=== PATIENT | male | born 1995 | race Two or more races ===

== ENCOUNTER 2017-04-12 16:08 | Emergency (ER) | payer BC, OTHER ==
[2017-04-12 16:18] VITALS: BP 137/66
--- NOTE | 2017-04-12 16:47 | UC ---
Respiratory Complaint HPI - HPI Summary HPI Summary: PATIENT PRESENTS TO WITH CC OF COUGH X 1.5 WEEKS WITH SPUTUM PRODUCTION. SYMPTOMS ARE WORSE AT NIGHT AND BETTER DURING THE DAY. DENIES FEVER, SWEATS OR CHILLS. DENIES BODY ACHES, MARIN, N/V OR RESPIRATORY DISTRESS. HE WAS DX WITH ASTHMA MANY YEARS AGO AND STATES HE HAS ONLY USED AN ALBUTEROL INHALER TWICE IN HIS LIFE. HE IS VISITING [place] NEXT WEEK AND IS CONCERNED OVER SOMETHING MORE SERIOUS THAN A COLD/COUGH. HE HAS NOT TAKEN ANYTHING FOR RELIEF. HE ENDORSES EAR POPPING AND SINUS DISCOMFORT. DENIES THROAT PAIN OR CHEST PAIN. HE IS NOTING SOME DIFFICULTY BREATHING, BUT ONLY SURROUNDING THE TIMES OF HIS COUGH. HE DENIES SICK CONTACTS. NO KNOWN ALLERGIES. PATIENT IS OTHERWISE HEALTHY. PATIENT IS A NON-SMOKER. - History of Current Complaint Chief Complaint: UCRespiratory Stated Complaint: COUGH, CONGESTION Time Seen by Provider: 04/12/17 16:31 Hx Obtained From: Patient Onset/Duration: Gradual Onset Timing: Constant Severity Initially: Moderate Severity Currently: Moderate Pain Intensity: 2 Character: Cough: Productive Aggravating Factors: Deep Breaths, Recumbent Position Alleviating Factors: Upright Position Associated Signs And Symptoms: Positive: Dyspnea, URI, Nasal Congestion, Sinus Discomfort - Risk Factors Pulmonary Embolism Risk Factors: Negative Cardiac Risk Factors: Negative Pseudomonas Risk Factors: Negative Tuberculosis Risk Factors: Negative - Allergies/Home Medications Allergies/Adverse Reactions: Allergies Allergy/AdvReac Type Severity Reaction Status Date / Time No Known Allergies Allergy Verified 05/27/16 22:08 Home Medications: Home Medications ZyrTEC 10 MG TAB* 10 mg PO DAILY 04/12/17 [History Confirmed 04/12/17] PMH/Surg Hx/FS Hx/Imm Hx Previously Healthy: Yes Endocrine History Of: Denies: Diabetes, Thyroid Disease Cardiovascular History Of: Denies: Cardiac Disorders, Hypertension, Pacemaker/ICD Respiratory History Of: Denies: COPD, Asthma GI/ History Of: Denies: Ulcer - Surgical History Surgical History: Yes Surgery Procedure, Year, and Place: WISDOM TEETH EXTRACTION - Family History Known Family History: Positive: Unknown - Social History Occupation: Unemployed, Student Lives: With Family Alcohol Use: None Substance Use Type: None Smoking Status (MU): Never Smoked Tobacco Have You Smoked in the Last Year: No - Immunization History Vaccination Up to Date: Yes Review of Systems Constitutional: Negative Skin: Negative ENT: Nasal Discharge Respiratory: Shortness Of Breath, Cough Cardiovascular: Negative Genitourinary: Negative Motor: Negative Musculoskeletal: Negative Neurological: Negative All Other Systems Reviewed And Are Negative: Yes Physical Exam Triage Information Reviewed: Yes Appearance: Well-Appearing, No Pain Distress, Well-Nourished Vital Signs: Initial Vital Signs Temp 98.8 F 04/12/17 16:15 Pulse 72 04/12/17 16:15 Resp 18 04/12/17 16:15 BP 137/66 04/12/17 16:15 Pulse Ox 97 04/12/17 16:15 Vital Signs Reviewed: Yes Eye Exam: Normal Eyes: Positive: Conjunctiva Clear ENT: Positive: Pharynx normal, Nasal congestion, Nasal drainage Neck exam: Normal Neck: Positive: Supple Respiratory: Positive: Chest non-tender, No accessory muscle use, Wheezing Cardiovascular Exam: Normal Cardiovascular: Positive: RRR Musculoskeletal Exam: Normal Musculoskeletal: Positive: Strength Intact Psychological: Positive: Normal Response To Family, Age Appropriate Behavior Skin Exam: Normal UC Diagnostic Evaluation - Laboratory O2 Sat by Pulse Oximetry: 97 Respiratory Course/Dx - Course Course Of Treatment: PATIENT PRESENTS WITH 1.5 WEEK HISTORY OF COUGH WITH PRODUCTION, SOB AND WHEEZING. DENIES FEVER, CHILLS OR SWEATS. DENIES RESPIRATORY HISTORY. PATIENT IS OTHERWISE HEALTHY. CXR REVEALS NO ACUTE CARDIOPULMONARY DISEASE. PATIENT IS PRESCRIBED ALBUTEROL INHALER FOR SOB, PREDNISONE FOR SOB AND WHEEZING AND MUCINEX FOR SPUTUM PRODUCTION. ENCOURAGED OTC COUGH MEDICATION IF NEEDED AFTER 4 DAYS OF MUCINEX. - Differential Dx/Diagnosis Differential Diagnosis/HQI/PQRI: Bronchitis, Lower Resp Infection, Sinusitis Provider Diagnoses: UPPER RESPIRATORY ILLNESS Discharge - Discharge Plan Condition: Stable Disposition: HOME Prescriptions: Albuterol HFA INHALER* [Ventolin HFA Inhaler*] 1 puff INH Q4H PRN #1 mdi PRN Reason: Shortness Of Breath guaiFENesin ER TAB [Mucinex*] 600 mg PO BID PRN #8 tab.er PRN Reason: Cough predniSONE TAB* [Deltasone TAB*] 50 mg PO DAILY #5 tab MDD 1 Patient Education Materials: Upper Respiratory Infection (ED) Referrals: Lennox Truong MD [Primary Care Provider] - Additional Instructions: Take 1 tab twice daily of mucinex Prednisone in the morning 50mg daily for 5 days Robitussin over the counter cough medication as needed Albuterol inhaler for shortness of breath Humidifier in the home will help symptoms Hot tea with lemon and honey to help break up mucous If symptoms become worse, come back to UC or go to ED Drink plenty of fluids and rest
--- NOTE | 2017-04-12 17:10 | RAD ---
INDICATION: Wheeze lung bases and cough. COMPARISON: Comparison is made with a prior study from June 21, 2007. TECHNIQUE: Dual-energy PA and lateral views of the chest were obtained. FINDINGS: The heart is within normal limits in size. Mediastinal and hilar contours appear within normal limits. The lungs are clear. No pleural effusion is present. IMPRESSION: NO EVIDENCE FOR ACTIVE CARDIOPULMONARY DISEASE.
[2017-04-12] MEDS ORDERED: guaiFENesin ER TAB 600 MG PO ONE (17:12)
[2017-04-12] MEDS ORDERED: Albuterol HFA INHALER* 8 gm MDI INH ONE (17:12)
[2017-04-12] MEDS ORDERED: GuaiFENesin DM* 5 ML UDC PO ONE (17:51)
[2017-04-12] MEDS ORDERED: guaiFENesin/CODIEN 100MG-10MG* 5 ML UDC PO ONE (17:55)
== END 2017-04-12 17:19 | disposition home or self-care (01) ==
LOC: UCEAST 16:08
DX: J06.9 Acute upper respiratory infection, unspecified (principal)
CPT/HCPCS: 71020; 99211; A9270-GY; G0463

== ENCOUNTER 2017-05-18 10:44 | Emergency (ER) | payer OTHER ==
[2017-05-18 11:07] VITALS: BP 121/68
[2017-05-18] MEDS ORDERED: Ibuprofen TAB* 600 MG PO ONE (11:49)
--- NOTE | 2017-05-18 11:54 | RAD ---
INDICATION: Pain at the LEFT third finger following crush injury. COMPARISON: August 21, 2014 LEFT wrist TECHNIQUE: AP, lateral, and oblique views LEFT hand. REPORT: Negative for acute fracture or articular malalignment. Mild soft tissue swelling at the distal second and third fingers. Chronic accessory ossicle or sequela of remote injury at the ulnar styloid. IMPRESSION: Soft tissue swelling without fracture or malalignment.
--- NOTE | 2017-05-18 12:54 | UC ---
I, Oh,Soelsa, scribed for Bryant Salas MD on 05/18/17 at 1208 . Upper Extremity HPI - HPI Summary HPI Summary: This 21 y/o male presents to [facility] for LUE #3 digit injury since this morning. Pt was lifting with two dumbells while on supine position when he accidentally pinched his LUE #3 between dumbells. Negative weakness. Pt is seen putting an ice over his finger. Positive mild swelling. Negative PMHx. Pt is nonsmoker and nondrinker. - History of Current Complaint Chief Complaint: UCUpperExtremity Stated Complaint: FINGER INJURY Time Seen by Provider: 05/18/17 11:48 Hx Obtained From: Patient, Medical Records - Allergies/Home Medications Allergies/Adverse Reactions: Allergies Allergy/AdvReac Type Severity Reaction Status Date / Time No Known Allergies Allergy Verified 05/18/17 11:02 PMH/Surg Hx/FS Hx/Imm Hx Previously Healthy: Yes - Pt denies any PMHx - Surgical History Surgical History: Yes Surgery Procedure, Year, and Place: WISDOM TEETH EXTRACTION - Family History Known Family History: Negative: Cardiac Disease - Social History Alcohol Use: Rare Substance Use Type: None Smoking Status (MU): Never Smoked Tobacco Have You Smoked in the Last Year: No - Immunization History Vaccination Up to Date: Yes Review of Systems Constitutional: Negative Skin: Negative Eyes: Negative ENT: Negative Respiratory: Negative Cardiovascular: Negative Gastrointestinal: Negative Genitourinary: Negative Motor: Negative Neurovascular: Negative Musculoskeletal: Other: - LUE digit #3 pain Neurological: Negative Psychological: Negative All Other Systems Reviewed And Are Negative: Yes Physical Exam Triage Information Reviewed: Yes Vital Signs: Initial Vital Signs Temp 98.0 F 05/18/17 11:03 Pulse 80 05/18/17 11:03 Resp 16 05/18/17 11:03 BP 121/68 05/18/17 11:03 Pulse Ox 100 05/18/17 11:03 Vital Signs Reviewed: Yes - Additional Comments The patient is well-nourished in no acute distress and in no acute pain. The skin is warm and dry and skin color reflects adequate perfusion. HEENT: The head is normocephalic and atraumatic. The pupils are equal and reactive. The conjunctivae are clear and without drainage. Nares are patent and without drainage. Mouth reveals moist mucous membranes and the throat is without erythema and exudate. The external ears are intact. The ear canals are patent and without drainage. The tympanic membranes are intact. Neck is supple with full range of motion and non-tender. There are no carotid bruits. There is no neck vein distension. Respiratory: Chest is non-tender. Lungs are clear to auscultation and breath sounds are symmetrical and equal. Cardiovascular: Hear is regular rate and rhythm. There is no murmur or rub auscultated. There is no peripheral edema and pulses are symmetrical and equal. Abdomen: The abdomen is soft and non-tender. There are normal bowel sounds heard in all four quadrants and there is no organomegaly palpated. Musculoskeletal: There is no back pain noted. Extremities are non-tender with full range of motion. There is good capillary refill at LUE digits. There is no peripheral edema or calf tenderness elicited. Tenderness at DIP joint of #3 digit. Neurological: Patient is alert and oriented to person, place and time. Psychiatric: The patient has an appropriate affect and does not exhibit any anxiety or depression. Diagnostics - Radiology LUE hand Xray Interpretation: No Acute Changes Radiology Interpretation Completed By: Radiologist Re-Evaluation - Re-Evaluation First Eval Re-Evaluation Time: 11:58 Comment: Pt is updated with X-ray reading results. Upper Extremity Course/Dx - Course Course Of Treatment: This 21 y/o male presents to [facility] for LUE #3 pain after striking his middle finger between two dumbells while lifting this morning. Negative weakness. X-ray is indicated negative. Pt is instructed to ice and elevate. Finger was wilman taped. Pt is discharged. - Differential Dx/Diagnosis Differential Diagnosis/HQI/PQRI: Contusion, Fracture (Closed), Hematoma Provider Diagnoses: sprain left middle finger, contusion left middle finger Discharge - Discharge Plan Condition: Stable Disposition: HOME Patient Education Materials: Contusion in Adults (ED), Finger Sprain (ED) Referrals: Lennox Truong MD [Primary Care Provider] - 2 Days Additional Instructions: Be sure to keep your finger iced and elevated. The documentation as recorded by the Silas rawls Soohyun accurately reflects the service I personally performed and the decisions made by , Bryant Salas MD.
== END 2017-05-18 12:11 | disposition home or self-care (01) ==
LOC: UCEAST 10:44
DX: S63.613A Unspecified sprain of left middle finger, initial encounter (principal); S60.032A Contusion of left middle finger without damage to nail, initial encounter; W23.0XXA Caught, crushed, jammed, or pinched between moving objects, initial encounter; Y92.9 Unspecified place or not applicable
CPT/HCPCS: 99212; A9270-GY; G0463

== ENCOUNTER 2017-09-13 16:54 | Emergency (ER) | payer OTHER ==
[2017-09-13 17:55] VITALS: BP 147/57
--- NOTE | 2017-09-13 18:23 | RAD ---
INDICATION: Right ankle injury. TECHNIQUE: 3 views of the right ankle were obtained. FINDINGS: The bones are in normal alignment. No fracture is seen. Joint spaces appear maintained. IMPRESSION: NO EVIDENCE FOR FRACTURE.
--- NOTE | 2017-09-18 11:24 | UC ---
Lower Extremity/Ankle HPI - History of Current Complaint Chief Complaint: UCLowerExtremity Stated Complaint: ANKLE PAIN Time Seen by Provider: 09/13/17 17:47 Pain Intensity: 3 Pain Scale Used: 0-10 Numeric - Allergies/Home Medications Allergies/Adverse Reactions: Allergies Allergy/AdvReac Type Severity Reaction Status Date / Time No Known Allergies Allergy Verified 05/18/17 11:02 Home Medications: Home Medications Ibuprofen [Ibuprofen 200 MG] 1 tab PO TID PRN 09/13/17 [History Confirmed ] PMH/Surg Hx/FS Hx/Imm Hx Previously Healthy: Yes - Surgical History Surgical History: Yes Surgery Procedure, Year, and Place: WISDOM TEETH EXTRACTION - Family History Known Family History: Positive: Unknown Negative: Cardiac Disease - Social History Alcohol Use: Rare Substance Use Type: None Smoking Status (MU): Never Smoked Tobacco Have You Smoked in the Last Year: No - Immunization History Vaccination Up to Date: Yes Review of Systems Constitutional: Negative Skin: Negative Eyes: Negative ENT: Negative Respiratory: Negative Cardiovascular: Negative Gastrointestinal: Negative Genitourinary: Negative Motor: Negative Neurovascular: Negative Musculoskeletal: Other: - right ankle pain Neurological: Negative Psychological: Negative All Other Systems Reviewed And Are Negative: Yes Physical Exam Triage Information Reviewed: Yes Vital Signs: Initial Vital Signs Temp 36.9 C 09/13/17 17:51 Pulse 66 09/13/17 17:51 Resp 16 09/13/17 17:51 BP 147/57 09/13/17 17:51 Pulse Ox 98 09/13/17 17:51 Vital Signs Reviewed: Yes Eye Exam: Normal ENT Exam: Normal Dental Exam: Normal Neck exam: Normal Neck: Positive: 1 Respiratory Exam: Normal Cardiovascular Exam: Normal Abdominal Exam: Normal Musculoskeletal: Positive: Other: - right ankle pain Neurological Exam: Normal Psychological Exam: Normal Skin Exam: Normal Lower Extremity Course/Dx - Course Course Of Treatment: right retrocalcaneal bursitis - Differential Dx/Diagnosis Provider Diagnoses: right retracalneal bursitis Discharge - Discharge Plan Condition: Stable Disposition: HOME Prescriptions: Ibuprofen TAB* [Motrin TAB* 800 MG] 800 mg PO Q6H #30 tab Patient Education Materials: Ankle Bursitis (ED) Referrals: Lennox Truong MD [Primary Care Provider] - Car Chavira MD [Medical Doctor] -
== END 2017-09-13 18:46 | disposition home or self-care (01) ==
LOC: UCEAST 16:54
DX: M76.61 Achilles tendinitis, right leg (principal)
CPT/HCPCS: 99212; G0463

== ENCOUNTER 2018-11-30 16:36 | Emergency (ER) | payer OTHER ==
[2018-11-30 17:41] VITALS: BP 129/75
--- NOTE | 2018-11-30 17:59 | UC ---
Ear Complaint HPI - HPI Summary HPI Summary: R sided ear pain this AM. Nothing makes it better/worse. denies fever, hearing loss, sore throat. - History of Current Complaint Chief Complaint: UCEar Stated Complaint: EAR PAIN Time Seen by Provider: 11/30/18 17:07 Hx Obtained From: Patient Onset/Duration: Sudden Onset Pain Intensity: 5 Pain Scale Used: 0-10 Numeric Aggravating Factors: Nothing Alleviating Factors: Nothing - Allergies/Home Medications Allergies/Adverse Reactions: Allergies Allergy/AdvReac Type Severity Reaction Status Date / Time almond Allergy Itching Verified 11/30/18 17:30 hazelnut Allergy Itching Verified 11/30/18 17:30 PMH/Surg Hx/FS Hx/Imm Hx Previously Healthy: Yes - Surgical History Surgical History: Yes Surgery Procedure, Year, and Place: WISDOM TEETH EXTRACTION - Family History Known Family History: Positive: Unknown Negative: Cardiac Disease - Social History Alcohol Use: Rare Substance Use Type: None Smoking Status (MU): Never Smoked Tobacco Have You Smoked in the Last Year: No - Immunization History Most Recent Tetanus Shot: UTD Vaccination Up to Date: Yes Review of Systems All Other Systems Reviewed And Are Negative: Yes Constitutional: Positive: Negative Skin: Positive: Negative ENT: Positive: Ear Ache - denies ear discharge.. Negative: Dental Pain Physical Exam Triage Information Reviewed: Yes Appearance: Well-Appearing Vital Signs: Initial Vital Signs Temp 98.9 F 11/30/18 17:33 Pulse 64 11/30/18 17:33 Resp 17 11/30/18 17:33 BP 129/75 11/30/18 17:33 Pulse Ox 98 11/30/18 17:33 Vital Signs Reviewed: Yes ENT: Positive: TMs normal, Uvula midline, Other - Both ear canals have a pustule in each. tenderness when touched w/ otoscope Ear Complaint Course/Dx - Course Course Of Treatment: Acute ear pain on R side and a pustle/pimple found in each canal. L ear became painful after touching pustule w/ otoscope. No evidence of abscess. - Differential Dx/Diagnosis Differential Diagnosis/HQI/PQRI: Cellulitis, Foreign Body, Otitis Externa, Otitis Media Provider Diagnosis: Pimples Discharge - Sign-Out/Discharge Documenting (check all that apply): Patient Departure All imaging exams completed and their final reports reviewed: No Studies - Discharge Plan Condition: Good Disposition: HOME Referrals: Lennox Truong MD [Primary Care Provider] - Additional Instructions: The cause of your pain is a small pustule in the canal. This will resolve on its own or you can massage the outer part of your ear. If it is really uncomfortable you can use tylenol or ibuprofen otc. - Billing Disposition and Condition Condition: GOOD Disposition: Home
== END 2018-11-30 18:00 | disposition home or self-care (01) ==
LOC: UCEAST 16:36
DX: H93.8X3 Other specified disorders of ear, bilateral (principal); Z91.018 Allergy to other foods
CPT/HCPCS: 99211; G0463

== ENCOUNTER 2019-06-11 10:40 | Emergency (ER) | payer OTHER ==
[2019-06-11 11:42] VITALS: BP 119/73
--- NOTE | 2019-06-11 12:54 | UC ---
Complaint Male HPI - HPI Summary HPI Summary: Pt has a pinching pain left and above the groin, started about a month ago and has had two bouts of severe pinching feeling. currently not experiencing pain but it has become more frequent. patient has been doing more workouts and driving 8 hours on weekends. - History of Current Complaint Chief Complaint: UCAbdominalPain Stated Complaint: GROUN PAIN Time Seen by Provider: 06/11/19 12:31 Hx Obtained From: Patient Onset/Duration: Sudden Onset, Other - in Timing: Intermittent Severity Initially: Mild Severity Currently: Mild Pain Intensity: 0 Location: Groin Character: Sharp Aggravating Factor(s): Straining Alleviating Factor(s): Nothing - Allergies/Home Medications Allergies/Adverse Reactions: Allergies Allergy/AdvReac Type Severity Reaction Status Date / Time almond Allergy Itching Verified 06/11/19 11:42 hazelnut Allergy Itching Verified 06/11/19 11:42 Home Medications: Home Medications Methylphenidate ER TAB* [Concerta ER TAB*] 18 mg PO DAILY 06/11/19 [History Confirmed 06/11/19] PMH/Surg Hx/FS Hx/Imm Hx Previously Healthy: Yes - Surgical History Surgical History: Yes Surgery Procedure, Year, and Place: WISDOM TEETH EXTRACTION - Family History Known Family History: Positive: Unknown Negative: Cardiac Disease - Social History Alcohol Use: Weekly Substance Use Type: None Smoking Status (MU): Current Some Day Smoker Type: eCigarettes Have You Smoked in the Last Year: No - Immunization History Most Recent Tetanus Shot: UTD Vaccination Up to Date: Yes Review of Systems All Other Systems Reviewed And Are Negative: Yes Constitutional: Positive: Negative Skin: Positive: Negative Eyes: Positive: Negative ENT: Positive: Negative Respiratory: Positive: Negative Cardiovascular: Positive: Negative Gastrointestinal: Positive: Negative Genitourinary: Positive: Negative Motor: Positive: Negative Neurovascular: Positive: Negative Musculoskeletal: Positive: Myalgia - groin Neurological: Positive: Negative Psychological: Positive: Negative Is Patient Immunocompromised?: No Physical Exam Triage Information Reviewed: Yes Appearance: Well-Appearing, No Pain Distress - at this time, Well-Nourished Vital Signs: Initial Vital Signs Temp 97.8 F 06/11/19 11:36 Pulse 66 06/11/19 11:36 Resp 16 06/11/19 11:36 BP 119/73 06/11/19 11:36 Pulse Ox 100 06/11/19 11:36 Vital Signs Reviewed: Yes Eye Exam: Normal ENT Exam: Normal Dental Exam: Normal Neck exam: Normal Respiratory Exam: Normal Cardiovascular Exam: Normal Abdomen Description: Positive: Nontender, No Organomegaly, Soft, CVA Tenderness (R) - neg, CVA Tenderness (L) - neg, Peritoneal Signs - neg, Other: - no bulging or divot nted on either side of inguinal areas. no testical swelling or pain. gentials appear normal Bowel Sounds: Positive: Present Male Genital Exam: Positive: Normal Genitalia, No Hernia Musculoskeletal Exam: Normal Neurological Exam: Normal Psychological Exam: Normal Complaint Male Course/Dx - Course Course Of Treatment: hx obtained, exam performed ,meds reviewed, groin exam completed with CORWIN Polanco present. educated patient and care and follow up if symptoms persist - Differential Dx/Diagnosis Differential Diagnosis/HQI/PQRI: Epididymitis, Testicular Torsion Provider Diagnosis: Left groin pain Discharge - Sign-Out/Discharge Documenting (check all that apply): Patient Departure All imaging exams completed and their final reports reviewed: No Studies - Discharge Plan Condition: Stable Disposition: HOME Patient Education Materials: Groin Pain (ED) Referrals: Lennox Truong MD [Primary Care Provider] - Additional Instructions: 1. your pain is in a location that is tpical of a hernia, however, at this time , there is no bulging or divot noted on exam. 2. you could have inflammation of the tendons in the area from the abdominal exercises you have been performing. 3. i recommend starting ibuprofen 400 mg every 4 hours for the next 24 - 48 hours. rest from abdominal and lower body exercises. 4. If the pain persists, you develop pain in the testicle, or worsening symtpoms forllow up in the ER or with your doctor. - Billing Disposition and Condition Condition: STABLE Disposition: Home
== END 2019-06-11 13:00 | disposition home or self-care (01) ==
LOC: UCEAST 10:40
DX: R10.32 Left lower quadrant pain (principal); F17.210 Nicotine dependence, cigarettes, uncomplicated
CPT/HCPCS: 99211; G0463

== ENCOUNTER 2019-12-05 20:48 | Emergency (ER) | payer OTHER ==
[2019-12-05 21:05] VITALS: BP 140/62
--- NOTE | 2019-12-05 21:05 | UC ---
Respiratory Complaint HPI - HPI Summary HPI Summary: 23-year-old male presenting with complaint of shortness of breath that has been progressively worsening for the past week. Patient states the past 3 days he has been using his old rescue inhaler which has relieved shortness of breath. Patient notes upper respiratory symptoms 3 weeks and now with productive cough 1 week. Productive of clear sputum. Denies chest pain but notes chest tightness relieved by inhaler. Denies nausea or vomiting. Denies fever and chills. PMH significant for asthma. States asthma usually well-controlled. States he is a social smoker and does not smoke every day. States he has not smoked "in a long time." Patient states concern for pneumonia. - History of Current Complaint Stated Complaint: COUGH, RESPIRATORY TIGHTNESS Hx Obtained From: Patient Onset/Duration: Gradual Onset, Lasting Days Pain Intensity: 0 - Allergies/Home Medications Allergies/Adverse Reactions: Allergies Allergy/AdvReac Type Severity Reaction Status Date / Time almond Allergy Itching Verified 12/05/19 21:04 hazelnut Allergy Itching Verified 12/05/19 21:04 Home Medications: Home Medications D-Methorphan/PE/Acetaminophen [Vicks Dayquil Cold & Flu] 2 cap PO 12/05/19 [ History] PMH/Surg Hx/FS Hx/Imm Hx Respiratory History: Asthma - Surgical History Surgical History: Yes Surgery Procedure, Year, and Place: WISDOM TEETH EXTRACTION - Family History Known Family History: Positive: Unknown Negative: Cardiac Disease - Social History Alcohol Use: Weekly Substance Use Type: None Smoking Status (MU): Current Some Day Smoker Type: eCigarettes Have You Smoked in the Last Year: No - Immunization History Most Recent Tetanus Shot: UTD Vaccination Up to Date: Yes Review of Systems All Other Systems Reviewed And Are Negative: Yes Constitutional: Positive: Negative. Negative: Fever, Chills ENT: Positive: Nasal Discharge - PND, Sinus Congestion. Negative: Sore Throat, Sinus Pain/Tenderness Respiratory: Positive: Shortness Of Breath, Cough - Productive of clear sputum, Other - Wheezing/chest tightness feeling Cardiovascular: Positive: Negative. Negative: Palpitations, Chest Pain Gastrointestinal: Positive: Negative. Negative: Vomiting, Nausea Musculoskeletal: Positive: Negative. Negative: Myalgia Neurological: Positive: Negative Physical Exam Triage Information Reviewed: Yes Appearance: Well-Appearing, No Pain Distress, Well-Nourished Vital Signs: Initial Vital Signs Temp 98.9 F 12/05/19 21:00 Pulse 99 12/05/19 21:00 Resp 20 12/05/19 21:00 BP 140/62 12/05/19 21:00 Pulse Ox 97 12/05/19 21:00 Vital Signs Reviewed: Yes Eyes: Positive: Conjunctiva Clear ENT: Positive: Hearing grossly normal, Pharynx normal, Nasal congestion, Nasal drainage - PND, TMs normal, Uvula midline. Negative: Tonsillar swelling, Tonsillar exudate, Sinus tenderness Neck exam: Normal Neck: Positive: Supple, Nontender, No Lymphadenopathy Respiratory: Positive: Lungs clear, Normal breath sounds, No respiratory distress, No accessory muscle use, Other: - mild tachypnea noted on initial exam. Negative: Crackles, Rhonchi, Stridor, Wheezing Cardiovascular Exam: Normal Cardiovascular: Positive: RRR. Negative: Tachycardia Neurological: Positive: Alert Psychological: Positive: Age Appropriate Behavior Skin Exam: Normal Respiratory Course/Dx - Course Course Of Treatment: Patient received albuterol neb here and voiced relief of sob/chest tightness. Discussed likely acute viral bronchitis with bronchospasm and instructed to continue symptomatic treatment. Afebrile with clear lung sounds bilaterally. Patient requested albuterol inhaler because his is old and Flovent, stating he has taken this in the past and has worked well for him with asthma exacerbations. I instructed to follow up with PCP if symptoms persist. Instructed to go to ED with any new or worsening symptoms. Patient voiced understanding and agreed with the treatment plan. - Differential Dx/Diagnosis Differential Diagnosis/HQI/PQRI: Asthma, Bronchitis Provider Diagnosis: Viral URI, Acute bronchitis with bronchospasm, Acute asthma exacerbation Discharge ED - Sign-Out/Discharge Documenting (check all that apply): Patient Departure All imaging exams completed and their final reports reviewed: No Studies - Discharge Plan Condition: Stable Disposition: HOME Prescriptions: Albuterol HFA INHALER* [Ventolin HFA Inhaler*] 1 puff INH Q4H PRN #1 mdi PRN Reason: Sob/Wheezing Fluticasone Propionate Diskus [Flovent Diskus] 50 mcg IH DAILY #1 blst.[email or web address] Patient Education Materials: Acute Bronchitis (ED), Bronchospasm (ED) Referrals: Lennox Truong MD [Primary Care Provider] - If Needed Additional Instructions: As discussed, your symptoms are most likely caused by a virus and should resolve without treatment. You may take an over the counter decongestant to help reduce your mucus production. You may also continue with Zyrtec for symptom relief. Use the albuterol and flovent inhalers as directed for relief of asthma/ shortness of breath/wheezing symptoms. Get plenty of rest and increase your fluid intake. Follow up with your primary care doctor if your symptoms do not resolve within 7 days. Go to the emergency room with any new or worsening symptoms. - Billing Disposition and Condition Condition: STABLE Disposition: Home
[2019-12-05] MEDS ORDERED: Albuterol 2.5 MG/3 ML NEB.SOL* (0.083%) INH ONE (21:07)
[2019-12-05] MEDS ORDERED: Albuterol HFA INHALER* 8 gm MDI INH ONE (21:46)
== END 2019-12-05 21:54 | disposition home or self-care (01) ==
LOC: UCEAST 20:48
DX: J20.9 Acute bronchitis, unspecified (principal); J45.901 Unspecified asthma with (acute) exacerbation; J06.9 Acute upper respiratory infection, unspecified; F17.290 Nicotine dependence, other tobacco product, uncomplicated; Z91.018 Allergy to other foods
CPT/HCPCS: 99212; A9270-GY; G0463